=== PATIENT | male | born 2000 | race Native Hawaiian/Other Pacific Islander ===

== ENCOUNTER 2020-08-13 20:36 | Outpatient (CLI) | payer OTHER | END 2020-08-14 07:12 | disposition home or self-care (01) | LOC: LABW 20:36 | PROVIDERS: ATTEND Internal Medicine Rheumatology | DX: M06.4 Inflammatory polyarthropathy (principal); M54.5 Low back pain ==

== ENCOUNTER 2020-08-17 15:58 | Outpatient (CLI) | payer OTHER ==
[2020-08-17 16:16] LABS: PLATELET COUNT 273 K/uL (142-355)
[2020-08-17 16:28] LABS: POTASSIUM 4.1 mmol/L (3.6-5.2)
== END 2020-08-17 22:12 | disposition home or self-care (01) ==
LOC: LABW 15:58
PROVIDERS: ATTEND Internal Medicine Rheumatology
DX: M06.4 Inflammatory polyarthropathy (principal); M54.5 Low back pain
CPT/HCPCS: 36415; 80053; 81374; 85027; 85652; 86140; 86200; 86430